=== PATIENT | female | born 1970 | race Caucasian/White ===

== ENCOUNTER → 2024-10-02 | Outpatient (CLI) | payer OTHER ==
--- NOTE | 2024-10-02 09:36 | BD ---
EXAMINATION TYPE: Axial Bone Density DATE OF EXAM: 10/02/2024 CLINICAL HISTORY: 54 years old Female. ICD-10 CODE: [id number], Z780 OSTEOPOROSIS , Additional History: Height: 64.5 Weight: 329.7 FRAX RISK QUESTIONS: Alcohol (3 or more units per day): no Family History (Parent hip fracture): no Glucocorticoids (More than 3mos): no (Ex: prednisone, prednisolone, methylprednisolone, dexamethasone, and hydrocortisone). History of Fracture in Adulthood: no Secondary Osteoporosis: 1. Type 1 Diabetes: no 2. Hyperthyroidism: no 3. Menopause before 45: no 4. Malnutrition: no 5. Chronic liver disease: no Rheumatoid Arthritis: no Current Tobacco Use: no RISK FACTORS HISTORY OF: Hip Fracture (Right/Left): no Spine Fracture: no History of Wrist Fracture: no Surgery to Spine/Hip(right/left)/Wrist (right/left): no MEDICATIONS: Thyroid Medications:no Osteoporosis Medications: no EXAM MEASUREMENTS: Bone mineral densitometry was performed using the HDF System. Bone mineral density as measured about the Lumbar spine is: ----- L1-L4(G/cm2): 1.032 T Score Values are as follows: ----- L1: -1.2 ----- L2: -1.4 ----- L3: -1.9 ----- L4: -0.6 ----- L1-L4: -1.2 Z Score Values are as follows: ----- L1: -1.6 ----- L2: -1.8 ----- L3: -2.4 ----- L4: -1.0 ----- L1-L4: -1.7 Baseline Study Bone mineral density about the R hip (g/cm2): 0.993 Bone mineral density about the L hip (g/cm2): 0.955 T Score values are as follows: -----R Neck: -1.4 -----L Neck: -1.8 -----R Total: -0.1 -----L Total: -0.4 Z Score values are as follows: -----R Neck: -1.2 -----L Neck: -1.5 -----R Total: -0.3 -----L Total: -0.6 Baseline Study FRAX%s: The graph provided illustrates a 5.4% chance for a major osteoporotic fx and a 0.5% chance fo r the hips probability for fx in 10 years time. IMPRESSION: Osteopenia (T Score between -2.5 and -1). There is slightly increased risk of fracture and the patient may be considered for treatment. Re-Screen 2-5 years. NOTE: T-SCORE=SD OF THE YOUNG ADULT MEAN. [facility], , 10/02/2024 9:34 AM
--- NOTE | 2024-10-02 09:37 | US ---
EXAMINATION TYPE: US liver DATE OF EXAM: 10/02/2024 COMPARISON: NONE CLINICAL INDICATION: Female, 54 years old with history of [id number] ELEVATED LEVELS; TECHNIQUE: Grayscale and color Doppler imaging of the right upper quadrant was performed. FINDINGS: EXAM MEASUREMENTS: Liver Length: 17.9 cm Gallbladder Wall: 0.2 cm CBD: 0.5 cm Right Kidney: 9.5 x 4.5 x 4.8 cm Pancreas: visualized portions wnl, limited by overlying midline bowel gas Liver: wnl Gallbladder: 1.3 cm shadowing echogenic focus Evidence for sonographic King's sign: no CBD: wnl Right Kidney: wnl IMPRESSION: Cholelithiasis. [facility], , 10/02/2024 9:35 AM
--- NOTE | 2024-10-02 10:27 | MM ---
Reason for Exam: Screening (asymptomatic). Patient History: Menarche at age 13. First Full-Term at age 22. Postmenopausal. Patient has history of breast feeding. Risk Values: Shanika 5 year model risk: 1.0%. NCI Lifetime model risk: 7.5%. Tissue Density: There are scattered areas of fibroglandular density. Findings: Analyzed By CAD. There is no suspicious group of microcalcifications or suspicious mass in either breast. Overall Assessment: Negative, BI-RAD 1 Management: Screening Mammogram of both breasts in 1 year. . Patient should continue monthly self-breast exams. A clinical breast exam by your physician is recommended on an annual basis. This exam should not preclude additional follow-up of suspicious palpable abnormalities. Note on Shanika scores and lifetime risk: 1. A Shanika score greater than 3% is considered moderate risk. If this is the case, consider specialist referral to assess eligibility for a risk reducing agent. 2. If overall lifetime risk for the development of breast cancer is 20% or higher, the patient may qualify for future screening with alternating mammogram and breast MRI. [facility], , 10/02/2024 10:24 AM. Electronically signed and approved by: Guzman Acharya M.D.
--- NOTE | 2024-10-02 11:30 | CTL ---
EXAMINATION TYPE: CT Low Dose Lung DATE OF EXAM: 10/02/2024 10:48 AM COMPARISON: None. CLINICAL INDICATION: Female, 54 years old with history of Z87.891 hx tobacco use; lung CA screening, history of tobacco use. TECHNIQUE: Multiple axial non-contrast scans were obtained from approximately the lung apices through the upper abdomen. Coronal and sagittal reformatted images were obtained. Low dose technique was uti lized. MIP were created on a separate workstation and submitted for review. CT DLP: 134 mGycm, Automated exposure control for dose reduction was used. CT Contrast: Contrast used: None Oral contrast used: None FINDINGS: Lack of intravenous contrast and low dose technique limits the evaluation of the vascular and soft ti ssue structures. LUNGS: No evidence of pulmonary fibrosis. No evidence of focal consolidation, pneumothorax or pleural effusion. Centrilobular emphysema changes. Nodules: RUL: None. RML: None. RLL: None. MIGUEL: None. LLL: None. AIRWAY: Patent and unremarkable. HEART: Size within normal limits. MEDIASTINUM: No gross evidence of adenopathy. VASCULATURE: No aortic aneurysm. MUSCULOSKELETAL: Mild disc degeneration changes are present throughout the thoracolumbar spine. SOFT TISSUES/LYMPH NODES: Unremarkable. LOWER NECK: No significant findings. UPPER ABDOMEN: Diffuse low-attenuation to the liver parenchyma. Calcification or gallbladder fossa po ssibly representing cholelithiasis versus postsurgical change if the patient has had a cholecystectom y. IMPRESSION: 1. No clinically significant pulmonary nodules. 2. Mild emphysema. 3. Hepatic steatosis. CT LUNG RAD AND CT CHEST RECOMMENDATION: Lung-Rad 1 Negative: Continue annual screening with LDCT in 12 months. S Modifier (other clinically significant findings): None Recommend smoking cessation (if current smoker), or continuation of smoking cessation (if prior smoke r). Annual screening for lung cancer with low-dose computed tomography is recommended in adults ages 55 to 77 years who have a 30 pack-year smoking history and currently smoke or have quit within the pa st 15 years. Screening should be discontinued once a person has not smoked for 15 years or develops a health problem that substantially limits life expectancy or the ability or willingness to have curat glenda lung surgery. Lung rads 2021 [email or web address] [facility], , 10/02/2024 11:28 AM
[2024-10-02 17:38] LABS: % Iron Saturation 25.55 (12.00-45.00); ALT 32 U/L (8-44); AST 51 U/L (13-35); Albumin 4.1 g/dL (3.8-4.9); Albumin/Globulin Ratio 1.17 Ratio (1.60-3.17); Alkaline Phosphatase 91 U/L (41-126); BUN/Creat Ratio 19.38 Ratio (12.00-20.00); Bilirubin, Conjugated <0.20 mg/dL (0.20-0.40); Bilirubin,Unconjugated >0.30 mg/dL (0.20-1.00); Blood Urea Nitrogen 15.5 mg/dL (9.0-27.0); Calcium 9.1 mg/dL (8.7-10.3); Carbon Dioxide 22.7 mmol/L (21.6-31.8); Chloride 105 mmol/L (96-109); Globulin 3.5 g/dL (1.6-3.3); Glucose 108 mg/dL (70-110); Hepatitis A Antibody IgM Nonreactive (Nonreactive); Hepatitis B Core IgM Nonreactive (Nonreactive); Hepatitis B Surface Antigen Nonreactive (Nonreactive); Hepatitis C IgG Antibody Nonreactive (Nonreactive); Iron 93 UG/DL (50-170); Potassium 4.2 mmol/L (3.5-5.5); Sodium 141 mmol/L (135-145); Total Bilirubin 0.5 mg/dL (0.3-1.2); Total Iron Binding Capacity 364 UG/DL (228-460); Total Protein 7.6 g/dL (6.2-8.2)
[2024-10-02 18:03] LABS: Ceruloplasmin 30.8 mg/dL (20.0-60.0)
[2024-10-03 06:06] LABS: EBV - VCA IgM <10.0 U/mL (<36.0)
[2024-10-03 11:45] LABS: Smooth Muscle Antibody 8 UNITS (<20)
== END | disposition home or self-care (01) ==
LOC: RADUSWWP 08:12
PROVIDERS: ATTEND Internal Medicine
DX: Z12.31 Encounter for screening mammogram for malignant neoplasm of breast (principal); Z12.2 Encounter for screening for malignant neoplasm of respiratory organs; R92.323 Mammographic fibroglandular density, bilateral breasts; Z13.820 Encounter for screening for osteoporosis; R74.01 Elevation of levels of liver transaminase levels; J43.2 Centrilobular emphysema; M85.89 Other specified disorders of bone density and structure, multiple sites; K80.20 Calculus of gallbladder without cholecystitis without obstruction; K76.0 Fatty (change of) liver, not elsewhere classified; Z78.0 Asymptomatic menopausal state; Z87.891 Personal history of nicotine dependence
CPT/HCPCS: 71271; 76705; 77063; 77067; 77080; 80053; 80074; 82103; 82248; 82390; 82525; 82728; 83516; 83540; 83550; 86038; 86645; 86665